=== PATIENT | female | born 1955 ===

== ENCOUNTER 2016-11-08 13:15 | Inpatient (IN) | payer OTHER ==
[2016-11-09] MEDS ORDERED: AQUAPHOR OINTMENT 3.5 OZ JAR TP PRN (15:45)
--- NOTE | 2016-11-09 16:35 | GHP ---
[f rep st] HISTORY AND PHYSICAL POST ADMISSION PHYSICIAN EVALUATION AND REHABILITATION TREATMENT PLAN DATE OF ADMISSION: 11/09/2016 DATE OF EVALUATION: November 09, 2016. TIME OF EVALUATION: 1450. REFERRING FACILITY: [facility]. REFERRING PHYSICIAN: Dr. Cardenas IMPAIRMENT GROUP: 1.1. DATE OF ONSET: 11/06/2016. 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 ETIOLOGIC DIAGNOSIS: Left body involvement (right brain). HISTORY OF PRESENT ILLNESS: Mrs. Haro presented to an Urgent Care on 2016 after noticing her left leg feeling like it was disconnected from her body and having lightheadedness. At the Urgent Care, a head CT was normal and she was diagnosed with vertigo and sent home with diazepam. The next day she had recurrent symptoms, including facial droop and left leg weakness. So, she drove herself to her primary care provider who sent her to the emergency department at [facility]. There an MRI showed a right upper milly infarction. She was admitted to the hospital. She had further evaluation as to the etiology of the stroke with cardiac monitoring which showed no dysrhythmias, an echocardiogram which showed grade 1 diastolic dysfunction and LVH, and a CT angiogram which showed atherosclerotic disease without vascular occlusion or dissection. She was started on aspirin and on atorvastatin. She was counseled to quit smoking. She was participating in therapy and was appropriate for transfer to inpatient rehabilitation. OTHER STUDIES AND LABS IN THE HOSPITAL: A basic metabolic profile was done and was entirely within normal limits as were liver function tests. CBC was within normal limits. She had slight hemoconcentration or polycythemia with a hemoglobin of 16.5, the upper limit of normal being 16.3. Hemoglobin A1c was 5.7. A lipid panel showed a total cholesterol of 171, an LDL of 84 and an HDL of 57. PRECAUTIONS: She is a fall risk, and she has aspiration precautions. ACTIVE COMORBIDITIES: She has the tier 3 comorbidity of morbid obesity. She has otherwise no active tier 1, tier 2, or tier 3 comorbidities. PAST MEDICAL HISTORY: 1. Coronary artery disease and myocardial infarction in January of 2016, which was treated with stenting. 2. Elevated TSH noted in February of 2016. 3. Hypertension. 4. Obesity. 5. Right ankle fracture. PAST SURGICAL HISTORY: She has had a section. She has had angioplasty with stent placement. She has had a surgery for her right ankle fracture. ALLERGIES: There are no known drug allergies, but she describes a gluten intolerance with diarrhea. PRE-HOSPITAL MEDICATIONS: I do not have a complete list. It is unclear whether she was taking aspirin. Neurologist notes there is no aspirin where as the hospitalist notes say she was taking aspirin. 1. Coenzyme Q. 2. Lactobacillus. 3. Lisinopril 10 mg p.o. daily. 4. Multivitamin daily. 5. Ennis-3 fatty acids 1000 mg 2 capsules daily. 6. Diazepam 5 mg q.6 hours p.r.n. vertigo. ADMISSION MEDICATIONS: 1. Aspirin 325 mg p.o. daily. 2. Atorvastatin 10 mg p.o. daily. 3. Ennis-3 fatty acids. 4. Lisinopril 10 mg p.o. daily. 5. Multivitamin 1 p.o. daily. FAMILY HISTORY: Her mother had stomach cancer. Her father had alcohol abuse and heart disease and of a heart attack at age 45. SOCIAL HISTORY: She is . She has been a smoker until the day of her stroke. She works in [employer] for [email or web address]. She has a local son who is soon to move to [place] where he will be studying [employer] with the [email or web address]. REVIEW OF SYSTEMS: She denies vision changes or difficulty swallowing. She reports that she passed her swallow evaluation. She reports left-sided weakness , more so in the arm than in the leg. She denies any loss of sensation. She denies headaches. She denies recent weight change. She denies fevers or chills. She denies chest pain or palpitations. She denies cough or dyspnea. She denies nausea, vomiting, constipation, or diarrhea. She said she did have diarrhea several months ago, but it resolved when she stopped eating gluten and dairy, and she has since been able to resume cheese without a return of the diarrhea. She denies joint pain or joint swelling. She reports a rash on her right forearm. She has had some insomnia with too much on her mind. She said she was given a medication for sleep which worked well in the hospital she is not sure what that is. She reports that she snores. She denies daytime somnolence. She denies morning headaches. Otherwise a 10-point review of systems is negative. PHYSICAL EXAM: VITAL SIGNS: Blood pressure is 151/98, heart rate is 68, respiratory rate is 16, oxygen saturation is 95% on room air, temperature is 36.6 degrees centigrade. Her weight is not yet recorded in the chart. GENERAL : This is an obese woman, cooperative and in no acute distress. HEENT: She has mild proptosis. Extraocular movements are intact. Pupils are equal, round , and reactive to light. Mucous membranes are moist. Dentition is in good condition. She has a crowded airway Mallampati class 3-4. NECK: Supple. HEART: There is a regular rate and rhythm with no murmurs, rubs, or gallops. LUNGS: Clear to auscultation bilaterally. ABDOMEN: Soft, nontender, nondistended. Normoactive bowel sounds and no hepatosplenomegaly. EXTREMITIES : There is no cyanosis, clubbing, or edema. Radial pulses are 2+ bilaterally. Dorsalis pedis pulses are 1+ bilaterally. NEUROLOGIC: She is alert and oriented x3. There is a slight left facial droop noted at the mouth. Otherwise cranial nerves 2-12 are grossly intact. She has no weakness on the right side. On the left side, her hand houseperson, biceps and triceps are 4/5. Her deltoid is 5/5 and in the left lower extremity her hip flexor is 4/5, her knee extension is 5/5. Her hamstrings are 4/5. Deep tendon reflexes are 2+ bilaterally at the biceps, patella and Achilles tendons. There is no pronator drift and plantar reflex is indeterminate bilaterally. Sensation is intact to light touch in all extremities. She coughs after she drinks water CURRENT LEVEL OF FUNCTION PER THE PREADMISSION SCREEN: Regarding diet, feeding , and swallowing, she was independent. For grooming, she required standby assist. For dressing upper extremity, she required standby assist and lower extremity required minimal assist. Toileting was done with minimal assist. She was noted to need assistance for bowel and bladder. Bed mobility was contact guard assist. Transfers were contact guard assist, and gait was contact guard assist. IMPRESSION: The patient is a 61-year-old woman who suffered a right pontine cerebrovascular accident on 11/05/2016. It was not diagnosed however until the next day when she had evolution of symptoms and thus was too late for thrombolytics or other intervention. In the hospital, hemorrhagic transformation was ruled out. She was begun on atorvastatin and on aspirin. Permissive hypertension was allowed until 11/08 after which she was resumed on lisinopril at 10 mg daily. She was participating in therapy and is appropriate for inpatient rehabilitation. She will benefit from therapies, including physical and occupational therapies regarding mobility and activities of daily living and speech therapy to further evaluate regarding swallowing. Additionally, she will have nursing care regarding bowel and bladder, fall risk , skin integrity, medication administration and medication and neurologic education. She will have physician care regarding blood pressure management, risk for neurologic deterioration, concern regarding possible sleep apnea and coronary artery disease. Her goal is to return home and return to work. For a safe discharge, she will need to achieve modified independence with mobility, ADLs, cognition and medication management. She will need to have medication education and neurologic education for her and her family. She will receive therapy with physical therapy, occupational therapy and speech and language pathology for 60 minutes per day for each discipline on 5-7 days per week. Her expected duration of stay is 10-12 days. It is anticipated that upon discharge, she will continue to benefit from home health services, including speech and language pathology, occupational therapy and physical therapy. ASSESSMENT AND PLAN: 1. Right pontine cerebrovascular accident with left-sided weakness. Physical and occupational therapy to optimize mobility and activities of daily living. 2. Possible dysphagia with episode of coughing while drinking water. She will be assessed by Speech and Language Pathology. 3. Stroke secondary prophylaxis with atorvastatin, aspirin and blood pressure control. 4. Hypertension. She is past the period of permissive hypertension. Blood pressure will be monitored and blood pressure medications adjusted to achieve appropriate blood pressure targets post CVA and post coronary artery disease. 5. Possible sleep apnea. She will have nocturnal oximetry to the extent that it can be done in the inpatient rehabilitation unit. Whether or not hypoxia is detected, advise follow up for a formal sleep study after her discharge. 6. History of diarrhea and possible gluten intolerance. She will be on a gluten-free diet. 7. Coronary artery disease. Amenable to the same prophylactic measures as secondary stroke prevention as above. 8. Diastolic dysfunction. She will be monitored for any signs or symptoms of congestive heart failure. 9. History of tobacco dependence. She denies any tobacco cravings at present. If these develop then nicotine replacement therapy can be considered. 10. History of elevated TSH as mentioned in her past medical history in the hospital notes. She does have proptosis, but no other overt symptoms of hypo- or hyperthyroidism. Should there be need to draw labs, a TSH can be repeated. Past laboratory studies have been requested from [facility]. /[id number]/MODL MTDD
--- NOTE | 2016-11-09 16:53 | PDOREHIP ---
Admission [facility] - Admission - 3 Day Assessment Period Admission Date/Day 1: 11/09/16 Day 2: 11/10/16 Day 3: 11/11/16 - Active Diagnoses Comorbidities and Co-existing Conditions at Admission: 76107. None of the Above - Skin Conditions Unhealed Pressure Ulcer (1 or more/Stage 1 or >)-Admission: 0. No
[2016-11-09] MEDS: ZOLPIDEM TARTRATE 5 MG TAB PO PRN (23:14)
[2016-11-10] MEDS: OMEGA-3 FATTY ACIDS 1,000 MG CAP PO SCH (08:22)
[2016-11-10] MEDS: MULTIVITAMINS 1 EACH TAB PO SCH (08:23)
[2016-11-10] MEDS: LISINOPRIL 10 MG TAB PO SCH (08:23)
[2016-11-10] MEDS: ATORVASTATIN CALCIUM 10 MG TAB PO SCH (08:23)
[2016-11-10] MEDS: ASPIRIN 325 MG TAB PO SCH (08:23)
[2016-11-10] MEDS ORDERED: Herbals/Supplements -Info Only PO SCH (09:00)
--- NOTE | 2016-11-10 09:48 | SOAPPROG ---
SOAP Progress Note Assessment/Plan: Assessment: 1. Right pontine cerebrovascular accident with left-sided weakness. Physical and occupational therapy to optimize mobility and activities of daily living. 2. Possible dysphagia with episode of coughing while drinking water. She will be assessed by Speech and Language Pathology. 3. Stroke secondary prophylaxis with atorvastatin, aspirin and blood pressure control. 4. Hypertension. She is past the period of permissive hypertension. Blood pressure will be monitored and blood pressure medications adjusted to achieve appropriate blood pressure targets post CVA and post coronary artery disease. 5. Possible sleep apnea. She will have nocturnal oximetry to the extent that it can be done in the inpatient rehabilitation unit. Whether or not hypoxia is detected, advise follow up for a formal sleep study after her discharge. 6. History of diarrhea and possible gluten intolerance. She will be on a gluten-free diet. 7. Coronary artery disease. Amenable to the same prophylactic measures as secondary stroke prevention as above. 8. Diastolic dysfunction. She will be monitored for any signs or symptoms of congestive heart failure. 9. History of tobacco dependence. She denies any tobacco cravings at present. If these develop then nicotine replacement therapy can be considered. 10. History of elevated TSH as mentioned in her past medical history in the hospital notes. She does have proptosis, but no other overt symptoms of hypo- or hyperthyroidism. Should there be need to draw labs, a TSH can be repeated. Past laboratory studies have been requested from [facility]. 11/10/16 09:48 Objective: Vital Signs Temp Pulse Resp BP Pulse Ox 36.7 C 55 L 18 140/78 H 92 11/10/16 06:36 11/10/16 06:36 11/10/16 06:36 11/10/16 08:23 11/10/16 06:36 11/09/16 11/10/16 11/11/16 05:59 05:59 05:59 Intake Total 400 354 Output Total 500 Balance 400 -146 ICD10 Worksheet Patient Problems: Problems Problem Status Onset HTN (hypertension) Acute Right pontine CVA Acute CAD (coronary artery disease) Acute
--- NOTE | 2016-11-10 10:25 | SOAPPROG ---
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 Physical and occupational therapy to optimize mobility and activities of daily living. * Possible dysphagia with episode of coughing while drinking water. She will be assessed by Speech and Language Pathology. * Stroke secondary prophylaxis with atorvastatin, aspirin and blood pressure control. * Hypertension. She is past the period of permissive hypertension. BP mildly elevated; will not adjust meds at present; continue to monitor. * Possible sleep apnea. She will have nocturnal oximetry to the extent that it can be done in the inpatient rehabilitation unit. Whether or not hypoxia is detected, advise follow up for a formal sleep study after her discharge. * History of diarrhea and possible gluten intolerance. She will be on a gluten- free diet. * Coronary artery disease. Amenable to the same prophylactic measures as secondary stroke prevention as above. * Diastolic dysfunction. No signs or symptoms of congestive heart failure. * History of tobacco dependence. She denies any tobacco cravings at present. If these develop then nicotine replacement therapy can be considered. * Subclinical hypothyroidism. TSH on 06/18/16 was 6.95; on 11/06/16 was 9.5 with normal free T4. No symptoms of hypothyroidism. Advise repeat testing in 4 to 6 weeks, as TSH is less reliable in the setting of acute illness. 11/10/16 10:25 Subjective: Reports difficulty initiating sleep last night; eventually received zolpidem 5 mg which "knocked me out." She thinks she'll sleep better tonight and does not want any mediation scheduled. Otherwise she is without complaint. She reports proptosis has been present all her life. Objective: Vital Signs Temp Pulse Resp BP Pulse Ox 36.7 C 55 L 18 140/78 H 92 11/10/16 06:36 11/10/16 06:36 11/10/16 06:36 11/10/16 08:23 11/10/16 06:36 11/09/16 11/10/16 11/11/16 05:59 05:59 05:59 Intake Total 400 354 Output Total 500 Balance 400 -146 Physical Exam - Physical Exam General Appearance: WD/WN, alert, no apparent distress Neck: No thyromegaly Respiratory: No respiratory distress, No accessory muscle use Skin: normal color, warm/dry Neuro/Psych: alert, normal mood/affect, oriented x 3, motor weakness (RUE ataxia ) ICD10 Worksheet Patient Problems: Problems Problem Status Onset HTN (hypertension) Acute Right pontine CVA Acute CAD (coronary artery disease) Acute
--- NOTE | 2016-11-11 09:13 | SOAPPROG ---
SOAP Progress Note Assessment/Plan: * Right pontine cerebrovascular accident 11/05/16 with left-sided weakness. Physical and occupational therapy to optimize mobility and activities of daily living. * Possible dysphagia with episode of coughing while drinking water. She will be assessed by Speech and Language Pathology. * Stroke secondary prophylaxis with atorvastatin, aspirin and blood pressure control. * Hypertension. She is past the period of permissive hypertension. BP mildly elevated; will not adjust meds at present; continue to monitor. * Possible sleep apnea. She will have nocturnal oximetry to the extent that it can be done in the inpatient rehabilitation unit. Whether or not hypoxia is detected, advise follow up for a formal sleep study after her discharge. * History of diarrhea and possible gluten intolerance. She will be on a gluten- free diet. * Coronary artery disease. Amenable to the same prophylactic measures as secondary stroke prevention as above. * Diastolic dysfunction. No signs or symptoms of congestive heart failure. * History of tobacco dependence. She denies any tobacco cravings at present. If these develop then nicotine replacement therapy can be considered. * Subclinical hypothyroidism. TSH on 06/18/16 was 6.95; on 11/06/16 was 9.5 with normal free T4. No symptoms of hypothyroidism. Advise repeat testing in 4 to 6 weeks, as TSH is less reliable in the setting of acute illness. Subjective: No events. Sleeping well and good progress in therapies. No complaints. Objective: Vital Signs Temp Pulse Resp BP Pulse Ox 36.7 C 70 16 141/89 H 92 11/10/16 20:00 11/10/16 20:00 11/10/16 20:00 11/10/16 20:00 11/10/16 20:00 11/10/16 11/11/16 11/12/16 05:59 05:59 05:59 Intake Total 400 854 500 Output Total 1800 Balance 400 -946 500 - Pending Discharge Pending Discharge Within 24 Hours: No Pending Discharge Within 48 Hours: No Physical Exam - Physical Exam General Appearance: alert, no apparent distress Neck: supple Respiratory: lungs clear, normal breath sounds Cardiac/Chest: regular rate, rhythm Abdomen: normal bowel sounds, non-tender Skin: normal color, warm/dry Neuro/Psych: alert, normal mood/affect, oriented x 3, No cognition abnormalities , No speech abnormalities ICD10 Worksheet Patient Problems: Problems Problem Status Onset HTN (hypertension) Acute Right pontine CVA Acute CAD (coronary artery disease) Acute
[2016-11-11] MEDS: ASPIRIN 325 MG TAB PO SCH (09:57)
[2016-11-11] MEDS: MULTIVITAMINS 1 EACH TAB PO SCH (09:57)
[2016-11-11] MEDS: OMEGA-3 FATTY ACIDS 1,000 MG CAP PO SCH (09:57)
[2016-11-11] MEDS: ATORVASTATIN CALCIUM 10 MG TAB PO SCH (09:58)
[2016-11-11] MEDS: LISINOPRIL 10 MG TAB PO SCH (09:58)
--- NOTE | 2016-11-12 08:43 | SOAPPROG ---
SOAP Progress Note Assessment/Plan: * Right pontine cerebrovascular accident 11/05/16 with left-sided weakness. Physical and occupational therapy to optimize mobility and activities of daily living. * Possible dysphagia with episode of coughing while drinking water. She will be assessed by Speech and Language Pathology. * Stroke secondary prophylaxis with atorvastatin, aspirin and blood pressure control. * Hypertension. She is past the period of permissive hypertension. BP mildly elevated; will not adjust meds at present; continue to monitor. * Possible sleep apnea. She will have nocturnal oximetry to the extent that it can be done in the inpatient rehabilitation unit. Whether or not hypoxia is detected, advise follow up for a formal sleep study after her discharge. * History of diarrhea and possible gluten intolerance. She will be on a gluten- free diet. * Coronary artery disease. Amenable to the same prophylactic measures as secondary stroke prevention as above. * Diastolic dysfunction. No signs or symptoms of congestive heart failure. * History of tobacco dependence. She denies any tobacco cravings at present. If these develop then nicotine replacement therapy can be considered. * Subclinical hypothyroidism. TSH on 06/18/16 was 6.95; on 11/06/16 was 9.5 with normal free T4. No symptoms of hypothyroidism. Advise repeat testing in 4 to 6 weeks, as TSH is less reliable in the setting of acute illness. Subjective: No events. Reports needing disability paperwork for work and has typing test today. No complaints. Objective: Vital Signs Temp Pulse Resp BP Pulse Ox 36.8 C 64 16 140/93 H 95 11/12/16 08:00 11/12/16 08:00 11/12/16 08:00 11/12/16 08:00 11/12/16 08:00 11/11/16 11/12/16 11/13/16 05:59 05:59 05:59 Intake Total 854 1086 Output Total 1800 800 300 Balance -946 286 -300 - Pending Discharge Pending Discharge Within 24 Hours: No Pending Discharge Within 48 Hours: No Physical Exam - Physical Exam General Appearance: alert, no apparent distress Neck: supple Respiratory: lungs clear, normal breath sounds Cardiac/Chest: regular rate, rhythm Abdomen: non-tender, soft Skin: warm/dry Neuro/Psych: alert, normal mood/affect, oriented x 3, No cognition abnormalities , No speech abnormalities ICD10 Worksheet Patient Problems: Problems Problem Status Onset HTN (hypertension) Acute Right pontine CVA Acute CAD (coronary artery disease) Acute
[2016-11-12] MEDS: ASPIRIN 325 MG TAB PO SCH (09:15)
[2016-11-12] MEDS: MULTIVITAMINS 1 EACH TAB PO SCH (09:15)
[2016-11-12] MEDS: LISINOPRIL 10 MG TAB PO SCH (09:15)
[2016-11-12] MEDS: ATORVASTATIN CALCIUM 10 MG TAB PO SCH (09:15)
[2016-11-12] MEDS: OMEGA-3 FATTY ACIDS 1,000 MG CAP PO SCH (09:15)
[2016-11-12] MEDS: ZOLPIDEM TARTRATE 5 MG TAB PO PRN (22:54)
--- NOTE | 2016-11-13 09:34 | SOAPPROG ---
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 Initial FIM 106. Walked 250' with trekking pole, climbed and descended 12 steps. Physical and occupational therapy to optimize mobility and activities of daily living. * Mild dysphagia and left facial weakness. Continue Speech and Language Pathology. * Cognition: workin [employer] higher level activities. Gets fatigue. * Stroke secondary prophylaxis with atorvastatin, aspirin and blood pressure control. * Hypertension. She is past the period of permissive hypertension. BP mildly elevated; will not adjust meds at present; continue to monitor. * Possible sleep apnea. No nocturnal oximetry noted. Consider follow up for a formal sleep study after her discharge. * History of diarrhea and possible gluten intolerance. She will be on a gluten- free diet. * Coronary artery disease. Amenable to the same prophylactic measures as secondary stroke prevention as above. * Diastolic dysfunction. No signs or symptoms of congestive heart failure. * History of tobacco dependence. She denies any tobacco cravings at present. If these develop then nicotine replacement therapy can be considered. * Subclinical hypothyroidism. TSH on 06/18/16 was 6.95; on 11/06/16 was 9.5 with normal free T4. No symptoms of hypothyroidism. Advise repeat testing in 4 to 6 weeks, as TSH is less reliable in the setting of acute illness. Attended staffing, 15 min. D/W case mgmt, nursing, PT, OT, RETAIL SUPPORT ASSOCIATE. Discharge home 11/16/16. Continue RETAIL SUPPORT ASSOCIATE at home or outpatient. 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 Medical leave paperwork completed. 11/13/16 12:20 Subjective: Hopes to be able to go home tomorrow, and wants to return to work. Says she had a typing test and did 28 words per minutes; says her employer reported that' s fast enough. Slept well, not in pain, co cough/dyspnea, f/c, Objective: Vital Signs Temp Pulse Resp BP Pulse Ox 36.7 C 80 16 125/99 H 96 11/13/16 08:00 11/13/16 08:00 11/13/16 08:00 11/13/16 08:00 11/13/16 08:00 11/12/16 11/13/16 11/14/16 05:59 05:59 05:59 Intake Total 1086 1187 Output Total 800 1350 Balance 286 -163 - Time Spent With Patient Time Spent With Patient: Greater than 35 minutes floor time today, including more than 50% of time incoordination of care during staffing meeting, and counseling patient. Physical Exam - Physical Exam General Appearance: WD/WN, alert, no apparent distress Respiratory: normal breath sounds, No crackles, No rhonchi, No wheezing Cardiac/Chest: regular rate, rhythm, No edema Neuro/Psych: alert, normal mood/affect, oriented x 3 ICD10 Worksheet Patient Problems: Problems Problem Status Onset HTN (hypertension) Acute Right pontine CVA Acute CAD (coronary artery disease) Acute
[2016-11-13] MEDS: ATORVASTATIN CALCIUM 10 MG TAB PO SCH (09:43)
[2016-11-13] MEDS: ASPIRIN 325 MG TAB PO SCH (09:43)
[2016-11-13] MEDS: OMEGA-3 FATTY ACIDS 1,000 MG CAP PO SCH (09:44)
[2016-11-13] MEDS: LISINOPRIL 10 MG TAB PO SCH (09:44)
[2016-11-13] MEDS: MULTIVITAMINS 1 EACH TAB PO SCH (09:44)
[2016-11-13] MEDS: ZOLPIDEM TARTRATE 5 MG TAB PO PRN (23:05)
[2016-11-14] MEDS: LISINOPRIL 10 MG TAB PO SCH (07:07)
[2016-11-14] MEDS: ASPIRIN 325 MG TAB PO SCH (07:07)
[2016-11-14] MEDS: ATORVASTATIN CALCIUM 10 MG TAB PO SCH (07:07)
[2016-11-14] MEDS: OMEGA-3 FATTY ACIDS 1,000 MG CAP PO SCH (07:08)
[2016-11-14] MEDS: MULTIVITAMINS 1 EACH TAB PO SCH (07:08)
--- NOTE | 2016-11-14 13:43 | SOAPPROG ---
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 Initial FIM 106. Walked 250' with trekking pole, climbed and descended 12 steps. Physical and occupational therapy to optimize mobility and activities of daily living. * Mild dysphagia and left facial weakness. Continue Speech and Language Pathology. * Cognition: working on higher level activities. Gets fatigue. * Stroke secondary prophylaxis with atorvastatin, aspirin and blood pressure control. * Hypertension. She is past the period of permissive hypertension. Now mostly normotensive with occ elevated reading; continue to monitor. * Possible sleep apnea. No nocturnal oximetry noted. Consider follow up for a formal sleep study after her discharge. * History of diarrhea and possible gluten intolerance. She will be on a gluten- free diet. * Coronary artery disease. Amenable to the same prophylactic measures as secondary stroke prevention as above. * Diastolic dysfunction. No signs or symptoms of congestive heart failure. * History of tobacco dependence. She denies any tobacco cravings at present. If these develop then nicotine replacement therapy can be considered. * Subclinical hypothyroidism. TSH on 06/18/16 was 6.95; on 11/06/16 was 9.5 with normal free T4. No symptoms of hypothyroidism. Advise repeat testing in 4 to 6 weeks, as TSH is less reliable in the setting of acute illness. Discharge home 11/16/16. 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 Medical leave paperwork completed. 11/14/16 13:40 Subjective: No complaints. Not in pain. No f/c, cough/dyspnea. Objective: Vital Signs Temp Pulse Resp BP Pulse Ox 36.6 C 57 L 16 126/74 H 92 11/14/16 06:32 11/14/16 06:32 11/14/16 06:32 11/14/16 07:07 11/14/16 06:32 11/13/16 11/14/16 11/15/16 05:59 05:59 05:59 Intake Total 1187 800 200 Output Total 1350 1 Balance -163 799 200 Physical Exam - Physical Exam General Appearance: WD/WN, alert, no apparent distress Respiratory: No respiratory distress, No accessory muscle use Skin: normal color, warm/dry Neuro/Psych: alert, normal mood/affect, oriented x 3 (Typing slowly at computer) ICD10 Worksheet Patient Problems: Problems Problem Status Onset HTN (hypertension) Acute Right pontine CVA Acute CAD (coronary artery disease) Acute
[2016-11-14] MEDS: ZOLPIDEM TARTRATE 5 MG TAB PO PRN (23:04)
[2016-11-15] MEDS: ATORVASTATIN CALCIUM 10 MG TAB PO SCH (07:43)
[2016-11-15] MEDS: MULTIVITAMINS 1 EACH TAB PO SCH (07:43)
[2016-11-15] MEDS: OMEGA-3 FATTY ACIDS 1,000 MG CAP PO SCH (07:44)
[2016-11-15] MEDS: ASPIRIN 325 MG TAB PO SCH (07:44)
[2016-11-15] MEDS: LISINOPRIL 10 MG TAB PO SCH (07:48)
--- NOTE | 2016-11-15 11:06 | SOAPPROG ---
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 Initial FIM 106. Walked 250' with trekking pole, climbed and descended 12 steps. Physical and occupational therapy to optimize mobility and activities of daily living. * Mild dysphagia and left facial weakness. Continue Speech and Language Pathology. * Cognition: working on higher level activities. Gets fatigue. * Stroke secondary prophylaxis with atorvastatin, aspirin and blood pressure control. * Hypertension. She is past the period of permissive hypertension. Now mostly normotensive with occ elevated reading; continue to monitor. * Possible sleep apnea. Nocturnal oxymetry report reviewed: 125 events of SPO2 < 85%, longest 52 sec. She should have formal polysomnographic testing after discharge. * History of diarrhea and possible gluten intolerance. She will be on a gluten- free diet. * Coronary artery disease. Amenable to the same prophylactic measures as secondary stroke prevention as above. * Diastolic dysfunction. No signs or symptoms of congestive heart failure. * History of tobacco dependence. She denies any tobacco cravings at present. If these develop then nicotine replacement therapy can be considered. * Subclinical hypothyroidism. TSH on 06/18/16 was 6.95; on 11/06/16 was 9.5 with normal free T4. No symptoms of hypothyroidism. Advise repeat testing in 4 to 6 weeks, as TSH is less reliable in the setting of acute illness. Discharge home 11/16/16. 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 Medical leave paperwork completed. 11/15/16 11:05 Subjective: No complaints. Slept well. Working on L hand function. Happy to be going home tomorrow. Objective: Vital Signs Temp Pulse Resp BP Pulse Ox 36.6 C 64 15 120/74 93 11/14/16 20:10 11/14/16 20:10 11/14/16 20:10 11/15/16 07:48 11/14/16 20:10 11/14/16 11/15/16 11/16/16 05:59 05:59 05:59 Intake Total 800 800 Output Total 1 Balance 799 800 Physical Exam - Physical Exam General Appearance: WD/WN, alert, no apparent distress Respiratory: No respiratory distress, No accessory muscle use Skin: normal color, warm/dry Neuro/Psych: alert, normal mood/affect, oriented x 3, motor weakness (mild ataxia hand) ICD10 Worksheet Patient Problems: Problems Problem Status Onset HTN (hypertension) Acute Right pontine CVA Acute CAD (coronary artery disease) Acute
[2016-11-15 12:03] VITALS: RESP 16
--- NOTE | 2016-11-15 17:22 | PDOREHIP ---
Admission [facility] - Admission - 3 Day Assessment Period Admission Date/Day 1: 11/09/16 Day 2: 11/10/16 Day 3: 11/11/16 Discharge [facility] - Discharge - 3 Day Assessment Period 2 Days Prior to Anticipated Discharge Date: 11/14/16 1 Day Prior to Anticipated Discharge Date: 11/15/16 Anticipated Discharge Date: 11/16/16 - Discharge Skin Conditions Unhealed Pressure Ulcer (1 or more/Stage 1 or >)-Discharge: 0. No
[2016-11-15] MEDS: ZOLPIDEM TARTRATE 5 MG TAB PO PRN (22:57)
[2016-11-16 06:35] VITALS: BP 129/85; PULSE 75; TEMP 98; O2SAT 96
[2016-11-16] MEDS: OMEGA-3 FATTY ACIDS 1,000 MG CAP PO SCH (07:42)
[2016-11-16] MEDS: ATORVASTATIN CALCIUM 10 MG TAB PO SCH (07:42)
[2016-11-16] MEDS: LISINOPRIL 10 MG TAB PO SCH (07:43)
[2016-11-16] MEDS: MULTIVITAMINS 1 EACH TAB PO SCH (07:43)
[2016-11-16] MEDS: ASPIRIN 325 MG TAB PO SCH (07:43)
[2016-11-16] MEDS ORDERED: IBUPROFEN 600 MG TAB PO PRN (09:00)
--- NOTE | 2016-11-17 17:58 | GDS ---
[f rep st] DISCHARGE SUMMARY ADMITTING DIAGNOSIS: Cerebrovascular accident of the right milly with left- sided weakness. DISCHARGE DIAGNOSES: 1. Cerebrovascular accident of the right milly with left-sided weakness. 2. Nocturnal hypoxia. 3. Hypertension. 4. Subclinical hypothyroidism. CONSULTATIONS: There were none. COMPLICATIONS: There were none. PROCEDURES: There were none. HISTORY AND HOSPITAL COURSE: Mrs. Haro was admitted from [facility] where she had presented initially to urgent care feeling that her left leg was disconnected from her body and having lightheadedness. Head CT at that time on 11/05/2016 was normal. She was diagnosed with vertigo and sent home with diazepam. The next day she had recurrent symptoms including facial droop and left leg weakness. She went to her primary care provider, who sent her to the hospital. An MRI of the brain showed a right upper milly infarction. Cardiac monitoring in the hospital showed no dysrhythmias. An echocardiogram showed grade 1 diastolic dysfunction and left ventricular hypertrophy. A CT angiogram showed cerebrovascular disease but no vascular occlusion or dissection. She was started on aspirin and atorvastatin, counseled to quit smoking and was discharged to rehabilitation. She had rapid improvement. Her initial functional independence measure was 106 , which is consistent with independent living. She was able to walk 250 feet with a trekking pole. She was able to climb and descend 12 steps. She was noted to have mild dysphagia and left facial weakness which was treated by Speech and Language Pathology. She did not need any dietary texture alterations. She was noted to have cognitive fatigue and otherwise was working on higher level cognitive functions with Speech and Language Pathology. She was able to type 28 words per minute. Her job description requires 35 words per minute. She had elevated blood pressure in the hospital. She had a period of permissive hypertension. She was discharged on lisinopril 10 mg daily to inpatient rehabilitation and her blood pressure was well controlled on this dose. Given her body habitus and crowded airway on exam, Mallampati class 3-4, there was suspicion for obstructive sleep apnea. She had a nocturnal oximetry study and 125 episodes of oxygen saturation below 89%; the longest duration being 52 seconds. She had a history of subclinical hypothyroidism. Her TSH on 06/18/2016 was 6.95. On 11/06/2016, it was 9.5. She had a normal T4. She had no symptoms of hypothyroidism. She was advised to have followup TSH testing in 4-6 weeks. DISCHARGE PLAN: Condition upon discharge is good. Activity is ad daysi. Diet is regular. FOLLOWUP: Date of next appointment: She is to follow up with her primary care provider, Dr. Camilo Davis on 11/20/2016 at 12:45 p.m. She also was referred to the [facility] for further evaluation regarding her nighttime hypoxia to rule out obstructive sleep apnea. MEDICATIONS AT DISCHARGE: 1. Dale-3 fatty acids 2000 mg p.o. daily. 2. Aspirin 325 mg p.o. daily. 3. Multivitamin 1 p.o. daily. 4. Zolpidem 5 mg p.o. at bedtime p.r.n. 5. Aquaphor ointment. 6. Lisinopril 10 mg p.o. daily. 7. Atorvastatin 10 mg p.o. daily. ISSUES TO BE ADDRESSED AT FOLLOWUP: 1. Functional status. She will continue to have therapy with Speech and Language Pathology either at home or as an outpatient, and she can have further evaluation by her primary care provider, Dr. Davis. 2. 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 3. Hypertension, dyslipidemia and stroke prophylaxis. She can follow up with her primary care provider. 4. Subclinical hypothyroidism. She can follow up with her primary care provider. 5. Left ventricular hypertrophy and diastolic dysfunction. She will benefit from blood pressure control. /[id number]/MODL MTDD
== END 2016-11-16 13:00 | disposition home or self-care (01) | DRG 57 ==
LOC: BREH 11-09 14:10
PROVIDERS: ADMIT Internal Medicine; ATTEND Internal Medicine
DX: I69.352 Hemiplegia and hemiparesis following cerebral infarction affecting left dominant side (principal); I69.391 Dysphagia following cerebral infarction; I25.10 Atherosclerotic heart disease of native coronary artery without angina pectoris; I25.2 Old myocardial infarction; Z95.5 Presence of coronary angioplasty implant and graft; I10 Essential (primary) hypertension; E66.01 Morbid (severe) obesity due to excess calories; Z68.35 Body mass index [BMI] 35.0-35.9, adult; F17.210 Nicotine dependence, cigarettes, uncomplicated; E02 Subclinical iodine-deficiency hypothyroidism; R09.02 Hypoxemia
CPT/HCPCS: 92507-GN; 92522-GN; 92526; 92610; 97110-GO; 97110-GP; 97112-GO; 97112-GP; 97116-GP; 97162-GP; 97166-GO; 97530-GO; 97530-GP; 97532-GO; 97535-GO